=== PATIENT | male | born 1980 | race Caucasian/White ===

== ENCOUNTER 2018-08-06 01:58 | Emergency (ER) | payer OTHER ==
[~2018-08-06] VITALS: Ht 188 cm; Wt 79.4 kg
--- NOTE | 2018-08-07 13:56 | EKG ---
[facility] [address] [facility] [place], [place] [address] Signed Sinus rhythm with marked sinus arrhythmia Otherwise normal ECG No previous ECGs available Confirmed by ANGÉLICA MENDIOLA MD ([id number] on 08/07/2018 1:56:14 PM Electronically Signed By: ANGÉLICA MENDIOLA MD 08/07/18 1356 PATIENT NAME: SEVEN CHEUNG Electrocardiogram DATE OF : 84 PHYSICIAN: ANGÉLICA MENDIOLA MD REPORT #: [id number] REPORT IS CONFIDENTIAL AND NOT TO BE RELEASED WITHOUT AUTHORIZATION
== END 2018-08-06 03:13 | disposition home or self-care (01) ==
LOC: ED 01:58
DX: F45.8 Other somatoform disorders (principal); F17.200 Nicotine dependence, unspecified, uncomplicated
CPT/HCPCS: 71046; 80053; 85025; 93005; 93010; 96374; 99284-25; 99406; J2060